=== PATIENT | female | born 1995 | race Caucasian/White ===

== ENCOUNTER 2022-01-22 21:08 | Outpatient (REF) | payer BC, SELFPAY ==
[2022-01-25 09:49] LABS: HIV-1/2 Ag & Ab Screen Negative (Negative)
[2022-01-25 12:50] LABS: Chlamydia Result Negative (Negative); GC Result Negative (Negative)
[2022-01-25 13:52] LABS: Hepatitis C Ab w Rflx HCV PCR Negative (Negative)
[2022-01-27 09:55] LABS: Syphilis Serology (RPR) Negative (Negative)
== END 2022-01-22 21:09 | disposition home or self-care (01) ==
LOC: NCHCN 21:08
PROVIDERS: Visit Provider Nurse Practitioner Family
DX: N76.0 Acute vaginitis (principal); Z00.00 Encounter for general adult medical examination without abnormal findings; Z11.4 Encounter for screening for human immunodeficiency virus [HIV]; Z11.59 Encounter for screening for other viral diseases; Z11.3 Encounter for screening for infections with a predominantly sexual mode of transmission
CPT/HCPCS: 86803; 87389; 87491; 87591; 86592; 87480; 87510; 87660

== ENCOUNTER 2022-05-04 09:19 | Outpatient (REF) | payer BC, SELFPAY ==
--- NOTE | 2022-05-04 09:05 | PAPFT_PTH ---
PATIENT: Kitty Cardenas LOC: NCN #:[id number] AGE/SX: 26/F ROOM: RE05/04/[address]: Kristie Cunningham : 1995 BED: DIS: 05/04/2022 SPEC #: [id number] RECD: 05/04/22 17:23 STATUS: ALFRED REJake #: [id number] JOCELYNN: 05/04/22 09:[address]: Kristie Cunningham DEPT: [facility] Cytology RECD BY: Jeanette Palafox ENTERED: 05/04/22 17:23 SP TYPE: PAPFT BERNIE DR: Unknown,Unknown Tissues: 1 - CX/ENDOCX FOR PAP SMEARS Procedures: PAP THIN PREP/[facility] Screening Comments: [id number]
== END 2022-05-04 09:20 | disposition home or self-care (01) ==
LOC: NCHCN 09:19
PROVIDERS: Visit Provider Nurse Practitioner Family
DX: Z00.00 Encounter for general adult medical examination without abnormal findings (principal); Z12.4 Encounter for screening for malignant neoplasm of cervix
CPT/HCPCS: 88142

== ENCOUNTER 2022-06-08 17:49 | Outpatient (REF) | payer BC, SELFPAY | END 2022-06-08 17:50 | disposition home or self-care (01) | LOC: NCHCN 17:49 | PROVIDERS: Visit Provider Family Medicine | DX: N39.0 Urinary tract infection, site not specified (principal) | CPT/HCPCS: 87086 ==

== ENCOUNTER 2023-04-27 18:45 | Outpatient (REF) | payer BC, SELFPAY | END 2023-04-27 18:46 | disposition home or self-care (01) | LOC: NCHCN 18:45 | PROVIDERS: Visit Provider Physician Assistant | DX: L03.032 Cellulitis of left toe (principal) | CPT/HCPCS: 87077; 87070; 87186; 87205 ==

== ENCOUNTER 2025-03-26 14:59 | Outpatient (REF) | payer SELFPAY ==
--- NOTE | 2025-03-26 08:10 | PAPFT_PTH ---
PATIENT: Kitty Cardenas LOC: NCN #:[id number] AGE/SX: 29/F ROOM: RE03/26/[address]: Rhina Zapata : 1995 BED: DIS: 03/26/2025 SPEC #: [id number] RECD: 03/26/25 18:12 STATUS: ALFRED REJake #: [id number] JOCELYNN: 03/26/25 08:[address]: Rhina Zapata DEPT: [facility] Cytology RECD BY: Jeanette Palafox Tissues: 1 - CX/ENDOCX FOR PAP SMEARS Procedures: PAP THIN PREP/[facility] Screening HPV DNA PROBE Comments: [id number] (HPV 16 & 18/45) (CHLAMYDIA/GC)
[2025-03-27 11:47] LABS: Chlamydia Result Negative (Negative); GC Result Negative (Negative)
== END 2025-03-26 15:00 | disposition home or self-care (01) ==
LOC: NCHCN 14:59
PROVIDERS: PCP Nurse Practitioner Family; Visit Provider Nurse Practitioner Family
DX: Z12.4 Encounter for screening for malignant neoplasm of cervix (principal)
CPT/HCPCS: 87491; 87591; 88142; 87624